=== PATIENT | female | born 1955 | race Caucasian/White ===

== ENCOUNTER 2017-08-07 11:17 | Emergency (ER) | payer SELFPAY ==
[~2017-08-07] VITALS: Ht 160 cm; Wt 74.0 kg
[2017-08-07 11:21] VITALS: BP 185/98; PULSE 92; RESP 19; TEMP 97.2; O2SAT 99
[2017-08-07 11:56] LABS: AUTOMATED NEUTROPHIL # 4.9 TH/MM3 (1.8-7.7); BASOPHIL % 0.5 % (0.0-2.0); EOSINOPHIL # 0.1 TH/MM3 (0-0.4); EOSINOPHIL % 1.6 % (0.0-4.0); HEMATOCRIT 39.9 % (35.0-46.0); HEMOGLOBIN 13.6 GM/DL (11.6-15.3); LYMPH % 23.4 % (9.0-44.0); LYMPHOCYTE # 1.7 TH/MM3 (1.0-4.8); MEAN CELL VOLUME 93.3 FL (80.0-100.0); MEAN CORPUSCULAR HEMOGLOBIN 31.9 PG (27.0-34.0); MEAN CORPUSCULAR HGB CONC 34.2 % (32.0-36.0); MEAN PLATELET VOLUME 10.5 FL (7.0-11.0); MONO % 8.5 % (0.0-8.0); MONOCYTE # 0.6 TH/MM3 (0-0.9); PLATELET COUNT 198 TH/MM3 (150-450); RED BLOOD COUNT 4.28 MIL/MM3 (4.00-5.30); RED CELL DISTRIBUTION WIDTH 12.7 % (11.6-17.2); WHITE BLOOD COUNT 7.4 TH/MM3 (4.0-11.0)
[2017-08-07 12:01] LABS: PROTHROMBIN TIME - PATIENT 9.9 SEC (9.8-11.6)
[2017-08-07 12:20] LABS: BICARBONATE 25.8 MEQ/L (21.0-32.0); BLOOD UREA NITROGEN 10 MG/DL (7-18); CHLORIDE 106 MEQ/L (98-107); CREATININE 0.83 MG/DL (0.50-1.00); GLOMERULAR FILTRATION RATE 70 ML/MIN (>89); GLUCOSE,RANDOM 119 MG/DL (74-106); SODIUM (NA) 140 MEQ/L (136-145)
[2017-08-07 12:24] LABS: TROPONIN I LESS THAN 0.02 NG/ML (0.02-0.05)
--- NOTE | 2017-08-07 12:38 | RADRPT ---
EXAM DATE/TIME: 08/07/2017 12:07 [place] COMPARISON: No previous studies available for comparison. INDICATIONS : Left side chest pressure with pain down left arm since this morning. MEDICAL HISTORY : Hypercholesterolemia. SURGICAL HISTORY : None. ENCOUNTER: Initial ACUITY: 1 day PAIN SCORE: 2/10 LOCATION: Bilateral chest FINDINGS: There is a tiny nodular density overlying the right lung base. Outpatient CT of the chest may be help ful for further evaluation of this nodule. The heart is normal. The pulmonary vascular pattern is nor mal. The lungs are otherwise clear. No focal infiltrate is noted. CONCLUSION: 1. Tiny nodular density overlying the right lung base. Outpatient CT of the chest may be helpful for further evaluation of this nodule. 2. No acute focal pulmonary infiltrate or pulmonary vascular congestion. Keny Lord MD on August 07, 2017 at 12:35 Board Certified Radiologist. This report was verified electronically.
--- NOTE | 2017-08-08 11:15 | EKG ---
Date Performed: 08/07/2017 Time Performed: 11:30:59 PTAGE: 62 years EKG: Sinus rhythm MODERATE ST DEPRESSION ABNORMAL ECG NO PREVIOUS TRACING DOCTOR: Aung Watts Interpretating Date/Time 08/08/2017 11:12:05
== END 2017-08-07 12:42 | disposition left against medical advice (07) ==
LOC: NED 11:17
DX: R07.9 Chest pain, unspecified (principal); R94.31 Abnormal electrocardiogram [ECG] [EKG]; Z53.21 Procedure and treatment not carried out due to patient leaving prior to being seen by health care provider
CPT/HCPCS: 71046; 80048; 82550; 84484; 85025; 85610; 93005; 99281